=== PATIENT | male | born 1990 | race Caucasian/White ===

== ENCOUNTER 2024-07-05 21:08 | Emergency (ER) | payer SELFPAY ==
[~2024-07-05] VITALS: Ht 172.7 cm; Wt 77.0 kg
[2024-07-05 21:28] VITALS: TEMP 36.6; O2SAT 99
[2024-07-05] MEDS: ACETAMINOPHEN 325MG TABLET PO ONE (22:12)
[2024-07-05] MEDS: SODIUM CHLORIDE 0.9% 1,000 ML IV ONE (22:12)
[2024-07-05] MEDS: LIDOCAINE 5% PATCH TOP SCH (22:18)
[2024-07-05 22:22] LABS: DIFFERENTIAL COMMENT 1; HEMATOCRIT. 43.2 % (42.0-52.0); HEMOGLOBIN. 14.9 g/dL (14.0-18.0); MEAN CORPUSCULAR HEMOGLOBIN 30.1 pg (28.0-32.0); MEAN CORPUSCULAR HGB CONC 34.5 g/dL (31.0-37.0); MEAN CORPUSCULAR VOLUME 87.2 fL (80.0-94.0); MEAN PLATELET VOLUME 8.4 fl (7.4-10.4); PLATELET 330 x1000/uL (130-400); RED BLOOD CELL COUNT 4.95 mill/uL (4.7-6.1); RED CELL DISTRIBUTION WIDTH 13.6 % (11.6-14.6); WHITE BLOOD COUNT 14.2 x1000/uL (4.5-11.0)
[2024-07-05 22:28] LABS: CHLORIDE 102 mEq/L (98-107); POTASSIUM 2.9 mEq/L (3.5-5.1); SODIUM 140 mEq/L (136-145)
[2024-07-05 22:29] LABS: CARBON DIOXIDE 20 mEq/L (21-32)
[2024-07-05 22:30] LABS: CALCIUM 9.9 mg/dL (8.7-10.4)
[2024-07-05 22:34] LABS: CREATININE 1.6 mg/dL (0.6-1.3)
[2024-07-05 22:35] LABS: ETHANOL BLOOD < 10 mg/dL (<10); GLUCOSE 166 mg/dL (70-105); UREA NITROGEN BLOOD 23 mg/dL (9-23)
[2024-07-05 22:36] LABS: ACETAMINOPHEN < 2 ug/mL (10-30); ALANINE AMINOTRANSFERASE 42 IU/L (10-49); ALBUMIN 4.6 g/dL (3.2-4.8); AMMONIA 61 uMol/L (<32); ASPARTATE AMINOTRANSFERASE 45 IU/L (<34); CREATINE KINASE 862 IU/L (46-171)
[2024-07-05 22:37] LABS: BILIRUBIN DIRECT 0.2 mg/dL (<=3.0); BILIRUBIN TOTAL 0.7 mg/dL (0.1-1.0); PROTEIN TOTAL 8.1 g/dL (6.0-8.3)
[2024-07-05] MEDS ORDERED: SODIUM CHLORIDE 0.9% 1,000 ML IV NR (23:00)
[2024-07-05] MEDS: POTASSIUM CHLORIDE 20MEQ/PACKET PO NR (23:23)
[2024-07-05 23:35] LABS: PLATELET ESTIMATE NORMAL
[2024-07-06 00:21] VITALS: BP 144/93; PULSE 105; RESP 20; O2SAT 96
[2024-07-06] MEDS ORDERED: ACET-2708 MT (02:44)
[2024-07-06] MEDS ORDERED: POTA-204 MT (02:44)
== END 2024-07-06 04:05 | disposition home or self-care (01) ==
LOC: ER 21:08
DX: E87.6 Hypokalemia (principal); M25.562 Pain in left knee; M25.561 Pain in right knee; G89.29 Other chronic pain; F20.9 Schizophrenia, unspecified; Z79.899 Other long term (current) drug therapy; Y08.89XA Assault by other specified means, initial encounter; Y93.89 Activity, other specified; Y92.89 Other specified places as the place of occurrence of the external cause; Y99.8 Other external cause status
CPT/HCPCS: 80076; 80048; 80307; 80329; 80320; 82140; 82550; 83690; 85025; 36415; 71045; 73110; 73560; 96360; 96361; 99284; 70450; J7030; Z7610; A4606; G0480